=== PATIENT | female | born 1980 | race African-American/Black ===

== ENCOUNTER 2018-01-30 12:05 | Emergency (ER) | payer SELFPAY ==
[~2018-01-30] VITALS: Ht 170.2 cm; Wt 56.0 kg
[~2018-01-30 12:05] MED LIST: DICL75 PO; Z.0.NO CURRENT MEDS
[2018-01-30 12:09] VITALS: BP 113/58; PULSE 102; RESP 18; TEMP 98; O2SAT 98
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
[2018-01-30] MEDS ORDERED: ACETAMINOPHEN/HYDROcodone 325 MG/5 MG TAB PO ONE (14:30)
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
[2018-01-30] MEDS ORDERED: PERC5TAB12 PO (15:48)
== END 2018-01-30 16:50 | disposition home or self-care (01) ==
LOC: NEPD 12:05
DX: S82.52XA Displaced fracture of medial malleolus of left tibia, initial encounter for closed fracture (principal); S82.832A Other fracture of upper and lower end of left fibula, initial encounter for closed fracture; F17.210 Nicotine dependence, cigarettes, uncomplicated; V03.90XA Pedestrian on foot injured in collision with car, pick-up truck or van, unspecified whether traffic or nontraffic accident, initial encounter
CPT/HCPCS: 29515; 73590; 73610; 73630; 99283; E0113